=== PATIENT | female | born 1995 | race African-American/Black ===

== ENCOUNTER 2022-03-13 10:11 | Emergency (ER) | payer OTHER ==
[2022-03-13 10:33] VITALS: BP 99/60; PULSE 104; RESP 16; TEMP 99.3; BMI 29.9
[2022-03-13] MEDS ORDERED: ACETAMINOPHEN 325 MG TABLET (FP) PO ONE (11:35)
[2022-03-13] MEDS ORDERED: ACETAMINOPHEN 325 MG TABLET (FP) ONE (12:05)
[2022-03-13] MEDS: ALBUTEROL SO4 2.5/IPRATROPIUM 0.5 INH SOL 3 ML VIAL.NEB. NEB SCH ×2 (12:22→12:23)
== END 2022-03-13 13:00 | disposition home or self-care (01) ==
LOC: JER 10:11
DX: J06.9 Acute upper respiratory infection, unspecified (principal)
CPT/HCPCS: 0241U-QW; 99283-25